=== PATIENT | male | born 1940 | race Caucasian/White ===

== ENCOUNTER 2019-06-05 14:07 | Inpatient (IN) | payer MEDICARE, MEDICAID ==
[~2019-06-05] VITALS: Ht 167.6 cm; Wt 87.7 kg
[~2019-06-05 14:07] MED LIST: ACET-3161 GT; ATEN50TA PO; ATOR10TA69 PO; DIAZ10TA PO; FURO40TA5 PO; METF-516 PO; PREG100C PO; SITA100T11 PO
[2019-06-05] MEDS ORDERED: ASPIRIN 81MG TABLET PO ONE (15:30)
[2019-06-05] MEDS ORDERED: FUROSEMIDE 40MG/4ML VIAL IV ONE (15:30)
[2019-06-05 15:55] LABS: HEMATOCRIT. 37.5 % (42.0-52.0); HEMOGLOBIN. 12.1 g/dL (14.0-18.0); MEAN CORPUSCULAR HEMOGLOBIN 29.1 pg (28.0-32.0); MEAN CORPUSCULAR VOLUME 90.5 fL (80.0-94.0); MEAN PLATELET VOLUME 8.5 fl (7.4-10.4); PLATELET 188 x1000/uL (130-400); RED BLOOD CELL COUNT 4.14 mill/uL (4.7-6.1); RED CELL DISTRIBUTION WIDTH 16.4 % (11.6-14.6)
[2019-06-05 16:02] LABS: CHLORIDE 110 mEq/L (98-107)
[2019-06-05 16:04] LABS: INR 1.1; PARTIAL THROMBOPLASTIN TIME 27.8 sec (23.4-31.0)
[2019-06-05 16:35] LABS: PLATELET ESTIMATE NORMAL
[2019-06-05] MEDS ORDERED: IPRATROPIUM BROMIDE (0.02%) 0.5MG/2.5ML NEB HHN STA (17:11)
[2019-06-05] MEDS ORDERED: ALBUTEROL (0.083%) 2.5MG/3ML NEB HHN STA (17:11)
[2019-06-05] MEDS ORDERED: ONDANSETRON HCL 4MG/2ML INJ IV PRN (17:15)
[2019-06-05] MEDS ORDERED: CLONIDINE 0.1MG TABLET PO PRN (17:15)
[2019-06-06] MEDS: HYDROCODONE/ACETAMINOPHEN 5/325MG TABLET PO PRN ×2 (01:43→08:03)
[2019-06-06 07:49] LABS: HEMATOCRIT. 36.5 % (42.0-52.0); HEMOGLOBIN. 11.9 g/dL (14.0-18.0); MEAN CORPUSCULAR HEMOGLOBIN 29.5 pg (28.0-32.0); MEAN CORPUSCULAR VOLUME 90.9 fL (80.0-94.0); MEAN PLATELET VOLUME 9.1 fl (7.4-10.4); PLATELET 176 x1000/uL (130-400); RED BLOOD CELL COUNT 4.01 mill/uL (4.7-6.1); RED CELL DISTRIBUTION WIDTH 16.6 % (11.6-14.6)
[2019-06-06] MEDS ORDERED: ATENOLOL 50 MG TABLET PO SCH (09:00)
[2019-06-06 09:39] LABS: PLATELET ESTIMATE NORMAL
[2019-06-06] MEDS: METFORMIN HCL 500MG TABLET PO SCH ×2 (09:46→21:31)
[2019-06-06] MEDS: PREGABALIN 75MG CAPSULE PO SCH ×2 (09:46→21:32)
[2019-06-06] MEDS: FUROSEMIDE 40MG/4ML VIAL IVP SCH ×2 (09:46→21:32)
[2019-06-06] MEDS: ACETAMINOPHEN 325MG TABLET PO PRN (13:17)
[2019-06-06 20:00] VITALS: BP 119/68
[2019-06-06] MEDS ORDERED: DEXTROSE 50% WATER 50ML SYRINGE IV PRN (20:45)
[2019-06-06] MEDS: INSULIN LISPRO 100 UNITS/ML SUBCUT SCH (20:53)
[2019-06-06] MEDS: BLOOD SUGAR DIAGNOSTIC STRIP TEST SCH (20:53)
[2019-06-06] MEDS: ATORVASTATIN CALCIUM 20MG TABLET PO SCH (21:31)
[2019-06-06] MEDS: DIAZEPAM 5 MG TABLET PO SCH (21:32)
[2019-06-06] MEDS: ENOXAPARIN 40MG/0.4ML SYR SUBCUT SCH (21:32)
[2019-06-07 00:29] VITALS: BP 125/60
[2019-06-07] MEDS: HYDROCODONE/ACETAMINOPHEN 5/325MG TABLET PO PRN (02:09)
[2019-06-07 04:00] VITALS: BP 117/67
[2019-06-07] MEDS: BLOOD SUGAR DIAGNOSTIC STRIP TEST SCH ×4 (06:42→20:35)
[2019-06-07 08:00] VITALS: BP 102/52
[2019-06-07] MEDS: PREGABALIN 75MG CAPSULE PO SCH ×2 (11:29→20:35)
[2019-06-07] MEDS: DOCUSATE SODIUM 100MG CAPSULE PO PRN (11:29)
[2019-06-07] MEDS: ATENOLOL 50 MG TABLET PO SCH (11:30)
[2019-06-07 11:58] LABS: BASOPHILS % 1.1 % (0.0-2.0); EOSINOPHILS % 4.8 % (0.0-5.0); HEMATOCRIT. 36.8 % (42.0-52.0); HEMOGLOBIN. 12.1 g/dL (14.0-18.0); LYMPHOCYTES % 14.5 % (20.0-50.0); MEAN CORPUSCULAR HEMOGLOBIN 29.6 pg (28.0-32.0); MEAN CORPUSCULAR VOLUME 90.2 fL (80.0-94.0); MONOCYTES % 14.2 % (2.0-8.0); NEUTROPHILS % 65.4 % (40.0-76.0); PLATELET 172 x1000/uL (130-400); RED BLOOD CELL COUNT 4.08 mill/uL (4.7-6.1); RED CELL DISTRIBUTION WIDTH 16.5 % (11.6-14.6)
[2019-06-07 12:00] VITALS: BP 128/78
[2019-06-07 12:18] LABS: CHLORIDE 104 mEq/L (98-107)
[2019-06-07 12:23] LABS: PHOSPHORUS 3.6 mg/dL (2.5-4.9)
[2019-06-07 16:14] VITALS: BP 109/58
[2019-06-07] MEDS: FUROSEMIDE 40MG TABLET PO SCH (17:40)
[2019-06-07 20:00] VITALS: BP 116/53
[2019-06-07] MEDS: ENOXAPARIN 40MG/0.4ML SYR SUBCUT SCH (20:35)
[2019-06-07] MEDS: DIAZEPAM 5 MG TABLET PO SCH (20:35)
[2019-06-07] MEDS: INSULIN LISPRO 100 UNITS/ML SUBCUT SCH (20:35)
[2019-06-07] MEDS: ATORVASTATIN CALCIUM 20MG TABLET PO SCH (20:35)
[2019-06-08] VITALS: BP 114/54
[2019-06-08 04:00] VITALS: BP 118/66
[2019-06-08] MEDS: FUROSEMIDE 40MG TABLET PO SCH ×2 (06:06→17:10)
[2019-06-08] MEDS: BLOOD SUGAR DIAGNOSTIC STRIP TEST SCH ×4 (07:34→21:19)
[2019-06-08] MEDS: INSULIN LISPRO 100 UNITS/ML SUBCUT SCH ×4 (07:34→21:00)
[2019-06-08 08:00] VITALS: BP 115/60
[2019-06-08] MEDS: PREGABALIN 75MG CAPSULE PO SCH ×2 (08:18→21:19)
[2019-06-08] MEDS: GLIMEPIRIDE 2MG TABLET PO SCH (08:18)
[2019-06-08] MEDS: DOCUSATE SODIUM 100MG CAPSULE PO PRN (08:18)
[2019-06-08] MEDS: ATENOLOL 50 MG TABLET PO SCH (08:18)
[2019-06-08] MEDS ORDERED: MAGNESIUM HYDROXIDE 400MG/5ML 30ML UDC PO PRN (10:45)
[2019-06-08] MEDS: POTASSIUM CHLORIDE 20MEQ TABLET SR PO SCH (13:28)
[2019-06-08 16:00] VITALS: BP 90/54
[2019-06-08] MEDS: ACETAMINOPHEN 325MG TABLET PO PRN (17:09)
[2019-06-08 20:00] VITALS: BP 93/55
[2019-06-08] MEDS: DIAZEPAM 5 MG TABLET PO SCH (21:00)
[2019-06-08] MEDS: CARVEDILOL 6.25 MG TABLET PO SCH (21:00)
[2019-06-08] MEDS: ATORVASTATIN CALCIUM 20MG TABLET PO SCH (21:19)
[2019-06-08] MEDS: ENOXAPARIN 40MG/0.4ML SYR SUBCUT SCH (21:19)
[2019-06-09] VITALS: BP 97/59
[2019-06-09 04:00] VITALS: BP 94/60
[2019-06-09] MEDS: DOCUSATE SODIUM 100MG CAPSULE PO PRN ×2 (06:43→07:53)
[2019-06-09] MEDS: FUROSEMIDE 40MG TABLET PO SCH (06:43)
[2019-06-09] MEDS: INSULIN LISPRO 100 UNITS/ML SUBCUT SCH ×4 (07:43→20:33)
[2019-06-09] MEDS: BLOOD SUGAR DIAGNOSTIC STRIP TEST SCH ×4 (07:43→20:33)
[2019-06-09] MEDS: POTASSIUM CHLORIDE 20MEQ TABLET SR PO SCH (07:53)
[2019-06-09] MEDS: GLIMEPIRIDE 2MG TABLET PO SCH (07:53)
[2019-06-09] MEDS: PREGABALIN 75MG CAPSULE PO SCH ×2 (07:53→21:21)
[2019-06-09] MEDS: CARVEDILOL 6.25 MG TABLET PO SCH (07:57)
[2019-06-09 07:58] VITALS: BP 102/62
[2019-06-09 08:45] LABS: HEMATOCRIT. 37.4 % (42.0-52.0); HEMOGLOBIN. 12.1 g/dL (14.0-18.0); MEAN CORPUSCULAR HEMOGLOBIN 29.3 pg (28.0-32.0); MEAN CORPUSCULAR VOLUME 90.4 fL (80.0-94.0); MEAN PLATELET VOLUME 9.5 fl (7.4-10.4); PLATELET 178 x1000/uL (130-400); RED BLOOD CELL COUNT 4.14 mill/uL (4.7-6.1); RED CELL DISTRIBUTION WIDTH 16.3 % (11.6-14.6)
[2019-06-09 12:00] VITALS: BP 92/64
[2019-06-09 14:04] LABS: PLATELET ESTIMATE NORMAL
[2019-06-09 16:00] VITALS: BP_SYST 103; BP_SYST 110; BP_SYST 99; BP_DIAS 68
[2019-06-09 20:00] VITALS: BP 103/65
[2019-06-09] MEDS: ACETAMINOPHEN 325MG TABLET PO PRN (20:26)
[2019-06-09] MEDS: GUAIFENESIN-DM 200MG-20MG/10ML UDC PO PRN (20:26)
[2019-06-09] MEDS: CARVEDILOL 3.125 MG TABLET PO SCH (21:00)
[2019-06-09] MEDS: ATORVASTATIN CALCIUM 20MG TABLET PO SCH (21:21)
[2019-06-09] MEDS: DIAZEPAM 5 MG TABLET PO SCH (21:21)
[2019-06-09] MEDS: ENOXAPARIN 40MG/0.4ML SYR SUBCUT SCH (21:21)
[2019-06-10] VITALS: BP_SYST 113; BP_SYST 99; BP_DIAS 57; BP_DIAS 63
[2019-06-10 04:00] VITALS: BP 99/60
[2019-06-10 06:55] LABS: CHLORIDE 109 mEq/L (98-107)
[2019-06-10 07:02] LABS: HEMATOCRIT. 37.1 % (42.0-52.0); HEMOGLOBIN. 12.2 g/dL (14.0-18.0); MEAN CORPUSCULAR HEMOGLOBIN 29.5 pg (28.0-32.0); MEAN CORPUSCULAR VOLUME 90.1 fL (80.0-94.0); MEAN PLATELET VOLUME 9.5 fl (7.4-10.4); PLATELET 159 x1000/uL (130-400); RED BLOOD CELL COUNT 4.12 mill/uL (4.7-6.1)
[2019-06-10] MEDS: INSULIN LISPRO 100 UNITS/ML SUBCUT SCH (07:20)
[2019-06-10] MEDS: BLOOD SUGAR DIAGNOSTIC STRIP TEST SCH (07:20)
[2019-06-10] MEDS: GLIMEPIRIDE 2MG TABLET PO SCH (07:54)
[2019-06-10] MEDS: GUAIFENESIN-DM 200MG-20MG/10ML UDC PO PRN (07:54)
[2019-06-10 08:00] VITALS: BP 116/64
[2019-06-10] MEDS: CARVEDILOL 3.125 MG TABLET PO SCH (09:00)
[2019-06-10] MEDS ORDERED: FUROSEMIDE 40MG TABLET PO SCH (09:00)
[2019-06-10] MEDS: PREGABALIN 75MG CAPSULE PO SCH (09:34)
[2019-06-10] MEDS: POTASSIUM CHLORIDE 20MEQ TABLET SR PO SCH (09:34)
[2019-06-10 09:44] LABS: PLATELET ESTIMATE NORMAL
[2019-06-10 10:05] VITALS: BP 116/64
== END 2019-06-10 11:40 | disposition home or self-care (01) | DRG 292 ==
LOC: ER 14:07 → 7WST 17:13 → EDBEDREQ 17:17 → ENRESERV 06-06 17:56
PROVIDERS: ADMIT Internal Medicine Nephrology; ATTEND Internal Medicine Nephrology
DX: I11.0 Hypertensive heart disease with heart failure (principal); E44.1 Mild protein-calorie malnutrition; D64.9 Anemia, unspecified; E03.9 Hypothyroidism, unspecified; E11.9 Type 2 diabetes mellitus without complications; E78.5 Hyperlipidemia, unspecified; G20 Parkinson's disease; I25.10 Atherosclerotic heart disease of native coronary artery without angina pectoris; I50.23 Acute on chronic systolic (congestive) heart failure; I27.81 Cor pulmonale (chronic); K59.00 Constipation, unspecified; I42.9 Cardiomyopathy, unspecified; J45.909 Unspecified asthma, uncomplicated; Z91.14 Patient's other noncompliance with medication regimen; Z95.0 Presence of cardiac pacemaker; Z95.1 Presence of aortocoronary bypass graft; Z68.31 Body mass index [BMI] 31.0-31.9, adult; Z79.84 Long term (current) use of oral hypoglycemic drugs; Z79.899 Other long term (current) drug therapy; Z83.3 Family history of diabetes mellitus; Z91.19 Patient's noncompliance with other medical treatment and regimen; Z88.8 Allergy status to other drugs, medicaments and biological substances
CPT/HCPCS: 36415; 71045; 80048; 80053; 80061; 82962; 83735; 83880; 84100; 84443; 84484; 85025; 93005; 93306; 94002; 96374; 96375; 97162; 97535; 99285; C1893; J1650; J1815; J1940

== ENCOUNTER 2021-05-14 12:42 | Inpatient (IN) | payer MEDICARE, MEDICAID ==
[~2021-05-14] VITALS: Ht 170.2 cm; Wt 100.3 kg
[~2021-05-14 12:42] MED LIST changes: -METF-516 PO; +METF-818 PO
[2021-05-14] MEDS ORDERED: CARV3.1242 MT (13:14)
[2021-05-14] MEDS ORDERED: POTA15TA11 MT (13:15)
[2021-05-14] MEDS ORDERED: GLIM4TAB36 PO (13:15)
[2021-05-14] MEDS ORDERED: LORA-250 PO (13:16)
[2021-05-14] MEDS ORDERED: EMPA25TA PO (13:18)
[2021-05-14] MEDS ORDERED: SPIR25TA6 PO (13:18)
[2021-05-14] MEDS ORDERED: FURO80TA3 PO (13:19)
[2021-05-14] MEDS ORDERED: INSU200I SQ (13:20)
[2021-05-14] MEDS ORDERED: INSU300I SQ (13:22)
[2021-05-14 13:38] LABS: BASOPHILS % 0.7 % (0.0-2.0); EOSINOPHILS % 1.2 % (0.0-5.0); HEMATOCRIT. 47.8 % (42.0-52.0); HEMOGLOBIN. 15.5 g/dL (14.0-18.0); LYMPHOCYTES % 15.8 % (20.0-50.0); MEAN CORPUSCULAR HEMOGLOBIN 30.2 pg (28.0-32.0); MEAN CORPUSCULAR VOLUME 92.8 fL (80.0-94.0); MEAN PLATELET VOLUME 8.1 fl (7.4-10.4); MONOCYTES % 11.3 % (2.0-8.0); PLATELET 176 x1000/uL (130-400); RED BLOOD CELL COUNT 5.15 mill/uL (4.7-6.1); RED CELL DISTRIBUTION WIDTH 17.5 % (11.6-14.6)
[2021-05-14 13:46] LABS: CHLORIDE 105 mEq/L (98-107)
[2021-05-14] MEDS: FUROSEMIDE 20MG/2ML VIAL IVP NR ×2 (14:00→14:18)
[2021-05-14] MEDS ORDERED: LORAZEPAM 0.5MG TABLET PO ONE (14:15)
[2021-05-14] MEDS ORDERED: FUROSEMIDE 20MG TABLET PO ONE (17:30)
[2021-05-14] MEDS: QUETIAPINE FUMARATE 25MG TABLET PO SCH (17:50)
[2021-05-14] MEDS ORDERED: CLONIDINE 0.1MG TABLET PO PRN (18:15)
[2021-05-14] MEDS ORDERED: ACETAMINOPHEN 325MG TABLET PO PRN (18:15)
[2021-05-14] MEDS: CARVEDILOL 3.125 MG TABLET PO SCH (21:07)
[2021-05-14] MEDS: PREGABALIN 75MG CAPSULE PO SCH (21:25)
[2021-05-14] MEDS: ATORVASTATIN CALCIUM 20MG TABLET PO SCH (21:26)
[2021-05-14] MEDS: ENOXAPARIN 30MG/0.3ML SYR SUBCUT SCH (21:26)
[2021-05-14 23:00] VITALS: BP 119/65
[2021-05-15 04:00] VITALS: BP 129/72
[2021-05-15 07:44] LABS: HEMATOCRIT 47.3 % (42.0-52.0); HEMOGLOBIN 15.7 g/dL (14.0-18.0); MEAN CORPUSCULAR HEMOGLOBIN 31.4 pg (28.0-32.0); MEAN CORPUSCULAR VOLUME 94.4 fL (80.0-94.0); PLATELET 177 x1000/uL (130-400); RED BLOOD CELL COUNT 5.01 mill/uL (4.7-6.1); RED CELL DISTRIBUTION WIDTH 18.2 % (11.6-14.6)
[2021-05-15] MEDS: INSULIN LISPRO 100 UNITS/ML SUBCUT SCH ×3 (07:45→16:40)
[2021-05-15] MEDS ORDERED: INSULIN LISPRO 100 UNITS/ML SUBCUT SCH (07:45)
[2021-05-15] MEDS ORDERED: FUROSEMIDE 20MG/2ML VIAL IVP SCH (09:00)
[2021-05-15] MEDS: ENOXAPARIN 30MG/0.3ML SYR SUBCUT SCH ×2 (09:38→20:40)
[2021-05-15] MEDS: PREGABALIN 75MG CAPSULE PO SCH ×2 (09:45→20:39)
[2021-05-15] MEDS: CARVEDILOL 3.125 MG TABLET PO SCH ×2 (09:45→18:14)
[2021-05-15 12:00] VITALS: BP 104/54
[2021-05-15] MEDS: BLOOD SUGAR DIAGNOSTIC STRIP TEST SCH ×3 (12:13→20:44)
[2021-05-15] MEDS: INSULIN GLARGINE UD 100 UNITS/ML SYR SUBCUT SCH (12:18)
[2021-05-15] MEDS: INSULIN LISPRO (LOW DOSE) 100 UNITS/ML SUBCUT SCH ×2 (12:19→16:40)
[2021-05-15 16:00] VITALS: BP 110/60
[2021-05-15] MEDS: CYANOCOBALAMIN 1000MCG TABLET PO SCH (16:11)
[2021-05-15] MEDS ORDERED: SODI15DR4 EACHEYE (17:29)
[2021-05-15] MEDS: QUETIAPINE FUMARATE 25MG TABLET PO SCH ×2 (17:30→20:39)
[2021-05-15] MEDS: TRAMADOL 50MG TABLET PO PRN (18:14)
[2021-05-15 20:00] VITALS: BP 100/56
[2021-05-15] MEDS: ATORVASTATIN CALCIUM 20MG TABLET PO SCH (20:39)
[2021-05-16] VITALS: BP 123/63
[2021-05-16 04:00] VITALS: BP 124/75
[2021-05-16] MEDS: BLOOD SUGAR DIAGNOSTIC STRIP TEST SCH ×4 (05:42→21:00)
[2021-05-16] MEDS: INSULIN LISPRO (LOW DOSE) 100 UNITS/ML SUBCUT SCH ×3 (05:59→16:40)
[2021-05-16] MEDS: INSULIN LISPRO 100 UNITS/ML SUBCUT SCH ×3 (06:00→16:40)
[2021-05-16] MEDS: CYANOCOBALAMIN 1000MCG TABLET PO SCH (06:01)
[2021-05-16 08:00] VITALS: BP 133/64
[2021-05-16 08:46] LABS: BASOPHILS % 0.4 % (0.0-2.0); EOSINOPHILS % 2.6 % (0.0-5.0); HEMATOCRIT. 42.9 % (42.0-52.0); HEMOGLOBIN. 14.5 g/dL (14.0-18.0); LYMPHOCYTES % 18.3 % (20.0-50.0); MEAN CORPUSCULAR HEMOGLOBIN 31.1 pg (28.0-32.0); MEAN CORPUSCULAR VOLUME 92.1 fL (80.0-94.0); MEAN PLATELET VOLUME 8.8 fl (7.4-10.4); MONOCYTES % 13.3 % (2.0-8.0); NEUTROPHILS % 65.4 % (40.0-76.0); PLATELET 155 x1000/uL (130-400); RED BLOOD CELL COUNT 4.65 mill/uL (4.7-6.1); RED CELL DISTRIBUTION WIDTH 17.6 % (11.6-14.6)
[2021-05-16 09:12] LABS: CHLORIDE 105 mEq/L (98-107)
[2021-05-16 09:25] LABS: T4 FREE 1.05 ng/dL (0.76-1.46)
[2021-05-16] MEDS: PREGABALIN 75MG CAPSULE PO SCH ×2 (09:37→20:37)
[2021-05-16] MEDS: FUROSEMIDE 40MG TABLET PO SCH (09:37)
[2021-05-16] MEDS: ENOXAPARIN 30MG/0.3ML SYR SUBCUT SCH ×2 (09:38→20:39)
[2021-05-16] MEDS: CARVEDILOL 3.125 MG TABLET PO SCH ×2 (09:38→17:21)
[2021-05-16] MEDS: INSULIN GLARGINE UD 100 UNITS/ML SYR SUBCUT SCH (09:41)
[2021-05-16] MEDS ORDERED: POTASSIUM CHLORIDE 20MEQ TABLET SR PO NR (10:30)
[2021-05-16 12:00] VITALS: BP 115/66
[2021-05-16] MEDS: DORZOLAM/TIMOLOL 2.23/0.68% OPHTH DROPS 10ML BOTHEYE SCH ×2 (13:00→20:42)
[2021-05-16] MEDS: CIPROFLOXACIN 0.3% OPHTH SOLN 2.5ML RIGHTEYE SCH ×2 (13:00→20:42)
[2021-05-16] MEDS: BRIMONIDINE 0.2% OPHTH DROPS 5ML BOTHEYE SCH ×2 (13:00→20:42)
[2021-05-16] MEDS ORDERED: NALOXONE HCL 0.4MG/ML VIAL IV PRN (15:00)
[2021-05-16] MEDS ORDERED: MAGNESIUM HYDROXIDE 400MG/5ML 30ML UDC PO PRN (15:45)
[2021-05-16] MEDS: TRAMADOL 50MG TABLET PO PRN (15:49)
[2021-05-16 16:00] VITALS: BP 128/76
[2021-05-16] MEDS: SODIUM CHLORIDE 5% OP SCH (17:22)
[2021-05-16 20:00] VITALS: BP 120/74
[2021-05-16] MEDS: ATORVASTATIN CALCIUM 20MG TABLET PO SCH (20:37)
[2021-05-16] MEDS: QUETIAPINE FUMARATE 25MG TABLET PO SCH (20:37)
[2021-05-17] VITALS (7 sets, daily range): BP systolic 102–171; BP diastolic 41–134
[2021-05-17] MEDS: TRAMADOL 50MG TABLET PO PRN ×3 (02:22→23:32)
[2021-05-17] MEDS: INSULIN LISPRO 100 UNITS/ML SUBCUT SCH ×3 (05:45→17:55)
[2021-05-17] MEDS: BLOOD SUGAR DIAGNOSTIC STRIP TEST SCH ×4 (05:45→21:00)
[2021-05-17] MEDS: INSULIN LISPRO (LOW DOSE) 100 UNITS/ML SUBCUT SCH ×3 (05:45→17:54)
[2021-05-17] MEDS: CYANOCOBALAMIN 1000MCG TABLET PO SCH (06:05)
[2021-05-17 07:32] LABS: CHLORIDE 103 mEq/L (98-107)
[2021-05-17] MEDS: ENOXAPARIN 30MG/0.3ML SYR SUBCUT SCH ×2 (09:00→21:36)
[2021-05-17] MEDS: PREGABALIN 75MG CAPSULE PO SCH ×2 (09:29→21:35)
[2021-05-17] MEDS: CARVEDILOL 3.125 MG TABLET PO SCH ×2 (09:30→17:33)
[2021-05-17] MEDS: FUROSEMIDE 40MG TABLET PO SCH (09:30)
[2021-05-17] MEDS: SODIUM CHLORIDE 5% OP SCH ×2 (09:31→17:36)
[2021-05-17] MEDS: CIPROFLOXACIN 0.3% OPHTH SOLN 2.5ML RIGHTEYE SCH ×2 (09:31→17:36)
[2021-05-17] MEDS: DORZOLAM/TIMOLOL 2.23/0.68% OPHTH DROPS 10ML BOTHEYE SCH ×2 (09:31→21:37)
[2021-05-17] MEDS: BRIMONIDINE 0.2% OPHTH DROPS 5ML BOTHEYE SCH ×2 (09:32→17:36)
[2021-05-17] MEDS: INSULIN GLARGINE UD 100 UNITS/ML SYR SUBCUT SCH (09:33)
[2021-05-17] MEDS: ASPIRIN 81MG TABLET PO SCH (13:06)
[2021-05-17] MEDS: ATORVASTATIN CALCIUM 20MG TABLET PO SCH (21:35)
[2021-05-17] MEDS: QUETIAPINE FUMARATE 25MG TABLET PO SCH (21:35)
[2021-05-18] VITALS: BP 113/53
[2021-05-18 04:00] VITALS: BP 125/55
[2021-05-18] MEDS: INSULIN LISPRO (LOW DOSE) 100 UNITS/ML SUBCUT SCH ×2 (06:13→12:34)
[2021-05-18] MEDS: INSULIN LISPRO 100 UNITS/ML SUBCUT SCH ×2 (06:14→12:36)
[2021-05-18] MEDS: BLOOD SUGAR DIAGNOSTIC STRIP TEST SCH ×2 (06:14→12:07)
[2021-05-18] MEDS: CYANOCOBALAMIN 1000MCG TABLET PO SCH (06:17)
[2021-05-18] MEDS: TRAMADOL 50MG TABLET PO PRN (06:18)
[2021-05-18 06:31] LABS: BASOPHILS % 0.8 % (0.0-2.0); EOSINOPHILS % 3.9 % (0.0-5.0); HEMATOCRIT. 43.8 % (42.0-52.0); HEMOGLOBIN. 14.5 g/dL (14.0-18.0); LYMPHOCYTES % 22.9 % (20.0-50.0); MEAN CORPUSCULAR HEMOGLOBIN 31.1 pg (28.0-32.0); MEAN CORPUSCULAR VOLUME 93.7 fL (80.0-94.0); MEAN PLATELET VOLUME 8.6 fl (7.4-10.4); MONOCYTES % 12.2 % (2.0-8.0); NEUTROPHILS % 60.2 % (40.0-76.0); PLATELET 171 x1000/uL (130-400); RED BLOOD CELL COUNT 4.68 mill/uL (4.7-6.1); RED CELL DISTRIBUTION WIDTH 17.7 % (11.6-14.6)
[2021-05-18 08:00] VITALS: BP 117/70
[2021-05-18] MEDS: ASPIRIN 81MG TABLET PO SCH (08:42)
[2021-05-18] MEDS: SODIUM CHLORIDE 5% OP SCH (08:43)
[2021-05-18] MEDS: BRIMONIDINE 0.2% OPHTH DROPS 5ML BOTHEYE SCH (08:43)
[2021-05-18] MEDS: CIPROFLOXACIN 0.3% OPHTH SOLN 2.5ML RIGHTEYE SCH (08:43)
[2021-05-18] MEDS: ENOXAPARIN 30MG/0.3ML SYR SUBCUT SCH (08:43)
[2021-05-18] MEDS: FUROSEMIDE 40MG TABLET PO SCH (08:43)
[2021-05-18] MEDS: CARVEDILOL 3.125 MG TABLET PO SCH (08:43)
[2021-05-18] MEDS: DORZOLAM/TIMOLOL 2.23/0.68% OPHTH DROPS 10ML BOTHEYE SCH (08:44)
[2021-05-18] MEDS: PREGABALIN 75MG CAPSULE PO SCH (08:45)
[2021-05-18 08:55] LABS: CHLORIDE 104 mEq/L (98-107)
[2021-05-18] MEDS ORDERED: INSULIN GLARGINE UD 100 UNITS/ML SYR SUBCUT SCH (10:00)
[2021-05-18 12:00] VITALS: BP 104/56
[2021-05-18 13:52] VITALS: BP 104/56
== END 2021-05-18 15:00 | DRG 291 ==
LOC: ER 12:42 → ENRESERV 21:26 → 7EST 23:00
PROVIDERS: ADMIT Family Medicine Adult Medicine; ATTEND Family Medicine Adult Medicine
DX: I11.0 Hypertensive heart disease with heart failure (principal); I50.23 Acute on chronic systolic (congestive) heart failure; G93.41 Metabolic encephalopathy; I25.5 Ischemic cardiomyopathy; B35.1 Tinea unguium; E11.21 Type 2 diabetes mellitus with diabetic nephropathy; R62.7 Adult failure to thrive; E11.40 Type 2 diabetes mellitus with diabetic neuropathy, unspecified; E11.39 Type 2 diabetes mellitus with other diabetic ophthalmic complication; E11.51 Type 2 diabetes mellitus with diabetic peripheral angiopathy without gangrene; E11.65 Type 2 diabetes mellitus with hyperglycemia; E53.8 Deficiency of other specified B group vitamins; E55.9 Vitamin D deficiency, unspecified; E66.9 Obesity, unspecified; E78.5 Hyperlipidemia, unspecified; E87.6 Hypokalemia; H54.7 Unspecified visual loss; I25.10 Atherosclerotic heart disease of native coronary artery without angina pectoris; I42.0 Dilated cardiomyopathy; J44.9 Chronic obstructive pulmonary disease, unspecified; Z80.52 Family history of malignant neoplasm of bladder; Z83.3 Family history of diabetes mellitus; Z90.49 Acquired absence of other specified parts of digestive tract; Z95.0 Presence of cardiac pacemaker; Z95.1 Presence of aortocoronary bypass graft; Z88.8 Allergy status to other drugs, medicaments and biological substances; Z68.34 Body mass index [BMI] 34.0-34.9, adult; F03.90 Unspecified dementia, unspecified severity, without behavioral disturbance, psychotic disturbance, mood disturbance, and anxiety
CPT/HCPCS: 36415; 71045; 80048; 80053; 82962; 83036; 83735; 83880; 84439; 84443; 84484; 85025; 85027; 87426; 93005; 99285; J1650; J1815; J1940